=== PATIENT | female | born 1955 | race Caucasian/White ===

== ENCOUNTER 2018-03-08 09:56 | Outpatient (CLI) | payer OTHER ==
--- NOTE | 2018-03-12 13:13 | MMO ---
BILATERAL SCREENING MAMMOGRAM: History: 62-year-old female for screening mammography. Comparison: 03-21-17, 03-02-16, 02-22-15 FINDINGS: Bilateral MLO and CC views of the breast show scattered fibroglandular breast tissue. Benign appearin g calcifications are seen in both breasts. There is no evidence of suspicious mass, suspicious cluste r of microcalcifications or area of architectural distortion. This study is interpreted with the assistance of computer aided detection. IMPRESSION: BIRADS category 2 - benign findings. Annual screening mammography is recommended. POS: [facility]
== END 2018-03-08 09:57 | disposition home or self-care (01) ==
LOC: SCSMAMMO 09:56
PROVIDERS: ATTEND Obstetrics & Gynecology
DX: Z12.31 Encounter for screening mammogram for malignant neoplasm of breast (principal)
CPT/HCPCS: 77067

== ENCOUNTER 2019-08-26 13:07 | Outpatient (CLI) | payer OTHER ==
--- NOTE | 2019-08-26 14:45 | BD ---
DEXA BONE DENSITY STUDY: HISTORY: Postmenopausal. FINDINGS: Lumbar Spine: BMD (g/cm2) L1 0.869 T-Score: -1.1 L2 0.946 T-Score: -0.7 L3 0.930 T-Score: -1.4 L4 0.973 T-Score: -0.8 L1-L4 0.932 T-Score: -1.0 Femoral Neck: 0.654 T-Score: -1.8 Total Femur: 0.810 T-Score: -1.1 Impression: 1. Osteopenia of the left hip and normal bone mineral density of the lumbar spine. 2. Ten-year fracture risk of a major osteoporotic fracture is 9.8% and of a hip fracture 1.5%. Thes e fracture probabilities are calculated for an untreated patient. POS: [facility]
--- NOTE | 2019-08-26 15:02 | MMO ---
Bilateral MAMMO Bilat Screen [facility]. CLINICAL HISTORY: Patient is 63 years old and is seen for screening. The patient has the following family history of breast cancer: maternal grandmother. The patient has no personal history of cancer. VIEWS: The views performed were: bilateral craniocaudal with tomosynthesis; bilateral mediolateral oblique with tomosynthesis; and bilateral exaggerated craniocaudal. FILMS COMPARED: The present examination has been compared to prior imaging studies performed at [facility] on 02/19/2014, 02/22/2015, 03/02/2016 and 03/21/2017. This study has been interpreted with the assistance of computer-aided detection. MAMMOGRAM FINDINGS: The breasts are heterogeneously dense, which could obscure a lesion on mammography. There are no suspicious masses, calcifications or areas of architectural distortion. There are benign appearing calcifications in both breasts. There are no suspicious masses, suspicious calcifications, or new areas of architectural distortion. IMPRESSION: THERE IS NO MAMMOGRAPHIC EVIDENCE OF MALIGNANCY. A ROUTINE FOLLOW-UP MAMMOGRAM IN 1 YEAR IS RECOMMENDED. THE RESULTS OF THIS EXAM WERE SENT TO THE PATIENT. ACR BI-RADS Category 2 - Benign finding MAMMOGRAPHY NOTE: 1. A negative mammogram report should not delay a biopsy if a dominant of clinically suspicious mass is present. 2. Approximately 10% to 15% of breast cancers are not detected by mammography. 3. Adenosis and dense breasts may obscure an underlying neoplasm. Reported by: GRACIA HERRING MD Electonically Signed: [id number]
== END 2019-08-26 13:08 | disposition home or self-care (01) ==
LOC: BICMAMMO 13:07
PROVIDERS: ATTEND Obstetrics & Gynecology
DX: Z12.31 Encounter for screening mammogram for malignant neoplasm of breast (principal); Z13.820 Encounter for screening for osteoporosis; M81.0 Age-related osteoporosis without current pathological fracture; M85.89 Other specified disorders of bone density and structure, multiple sites; Z79.890 Hormone replacement therapy; Z80.3 Family history of malignant neoplasm of breast
CPT/HCPCS: 77063; 77067; 77080

== ENCOUNTER 2019-10-21 18:26 | Inpatient (IN) | payer SELFPAY ==
--- NOTE | 2019-10-21 18:49 | RAD ---
Chest one view HISTORY: Chest injury. Pneumothorax. COMPARISON: Earlier exam on the same date. FINDINGS: Cardiac silhouette remains midline. Apical pleura of the right lung remains at the inferior margin of the posterior right third rib. Small caliber right thoracostomy tube remains in good radiographic position. Right clavicle and rib fractures again demonstrated. Left lung remains well-inflated. IMPRESSION : Small right pneumothorax and other findings are stable.
[2019-10-21 18:50] LABS: #Lymphocytes 0.7 thou/uL (1.20-3.40); #Monocytes 0.6 thou/uL (0.11-0.59); #Neutrophils 10.4 thou/uL (1.40-6.50); %Basophils 0.2 % (0.0-1.0); %Eosinophils 0.1 % (0.0-10.0); %Lymphocytes 5.9 % (21.0-51.0); %Monocytes 5.3 % (0.0-10.0); %Neutrophils 88.5 % (42.0-75.0); Hemoglobin 11.7 g/dL (12.0-16.0); Mean Corpuscular HGB CONC 34.2 g/dL (32.0-36.0); Mean Corpuscular Hemoglobin 34.5 pg (27.0-31.0); Mean Platelet Volume 7.8 fL (7.4-10.4); Platelet Count 260 thou/uL (130-400); RBC Distribution Width 11.5 % (11.5-14.5); Red Blood Cell (RBC) Count 3.38 mill/uL (4.20-5.40); White Blood Cell (WBC) Count 11.8 thou/uL (4.8-10.8)
[2019-10-21] MEDS ORDERED: Ketorolac Tromethamine 30 MG/ML VIAL ONE (19:18)
[2019-10-21] MEDS ORDERED: Lidocaine 1% w/Epinephrine 1:100K 20 ML VIAL ONE (19:18)
[2019-10-21] MEDS ORDERED: Dextrose 50% Abboject 50 ML SYRINGE SLOW IVP PRN (19:25)
[2019-10-21] MEDS ORDERED: hydrALAZINE 20 MG/ML VIAL SLOW IVP PRN (19:25)
[2019-10-21] MEDS ORDERED: Morphine 2 MG/ML SYRINGE SLOW IVP PRN (19:25)
[2019-10-21] MEDS ORDERED: Dextrose 5% in Water 1,000 ML IV PRN (19:25)
[2019-10-21] MEDS ORDERED: Rib Fracture Protocol PO SCH ×2 (19:30→20:15)
[2019-10-21] MEDS ORDERED: Morphine 4 MG/ML VIAL ONE (19:50)
--- NOTE | 2019-10-21 20:29 | RAD ---
Chest one view HISTORY: Chest tube placement. COMPARISON: Earlier exam on the same date. FINDINGS: Large caliber right thoracostomy tube has now been placed, entering at the lateral aspect o f the sixth intercostal space. Tip directed to the apex. Right pneumothorax no longer visible. Soft tissue gas now evident at the right upper chest wall. Righ t rib fractures now better visualized. radiation monitor leads overlie the chest. IMPRESSION : Large caliber right thoracostomy tube in good position with evacuation of the right pneumothorax.
[2019-10-21 23:15] VITALS: BMI 19.8
[2019-10-21] MEDS: Famotidine 20 MG TAB PO SCH (23:35)
[2019-10-21] MEDS: Ibuprofen 800 MG TAB PO SCH (23:41)
[2019-10-21] MEDS: Acetaminophen 500 MG TAB PO SCH (23:41)
[2019-10-21] MEDS: traMADol HCl 50 MG TAB PO SCH (23:41)
[2019-10-21] MEDS ORDERED: Acetaminophen 500 MG TAB PO SCH (23:59)
[2019-10-21] MEDS ORDERED: Acetaminophen 650 MG Suppository PR SCH (23:59)
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
[2019-10-22] MEDS: Ibuprofen 800 MG TAB PO SCH ×4 (05:48→23:48)
[2019-10-22] MEDS: Acetaminophen 500 MG TAB PO SCH ×4 (05:49→23:48)
[2019-10-22] MEDS: traMADol HCl 50 MG TAB PO SCH ×4 (05:49→23:48)
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
[2019-10-22] MEDS: Lisinopril 20 MG TAB PO SCH (09:58)
[2019-10-22] MEDS: Gabapentin 300 MG CAP PO SCH ×3 (09:58→20:51)
[2019-10-22] MEDS: Folic Acid 1 MG TAB PO SCH (09:59)
[2019-10-22] MEDS: Citalopram 20 MG TAB PO SCH (09:59)
[2019-10-22] MEDS: Thiamine 100 MG TAB PO SCH (09:59)
[2019-10-22] MEDS: Amlodipine 10 MG TAB PO SCH (09:59)
[2019-10-22] MEDS: Oxazepam 10 MG CAP PO SCH ×2 (09:59→20:52)
[2019-10-22] MEDS: Famotidine 20 MG TAB PO SCH ×2 (09:59→20:52)
[2019-10-22] MEDS: Polyethylene Glycol 3350 17 GM Packet PO SCH (09:59)
[2019-10-22] MEDS: Senokot S 8.6-50 MG TAB PO SCH ×2 (09:59→20:52)
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
[2019-10-23] MEDS: traMADol HCl 50 MG TAB PO SCH ×2 (05:59→12:25)
[2019-10-23] MEDS: Ibuprofen 800 MG TAB PO SCH (05:59)
[2019-10-23] MEDS: Acetaminophen 500 MG TAB PO SCH ×4 (05:59→23:01)
--- NOTE | 2019-10-23 08:19 | RAD ---
PORTABLE CHEST 1 VIEW: DATE: 10/23/2019. TIME: 5:12 AM. HISTORY: Followup pneumothorax and chest tube. COMPARISON: Previous day. FINDINGS/IMPRESSION: No significant interval change is identified. POS: [facility]
[2019-10-23] MEDS: Lisinopril 20 MG TAB PO SCH (08:54)
[2019-10-23] MEDS: Senokot S 8.6-50 MG TAB PO SCH ×2 (08:54→20:35)
[2019-10-23] MEDS: Amlodipine 10 MG TAB PO SCH (08:55)
[2019-10-23] MEDS: Thiamine 100 MG TAB PO SCH (08:55)
[2019-10-23] MEDS: Citalopram 20 MG TAB PO SCH (08:55)
[2019-10-23] MEDS: Polyethylene Glycol 3350 17 GM Packet PO SCH (08:55)
[2019-10-23] MEDS: Gabapentin 300 MG CAP PO SCH ×3 (08:55→20:35)
[2019-10-23] MEDS: Oxazepam 10 MG CAP PO SCH (08:55)
[2019-10-23] MEDS: Famotidine 20 MG TAB PO SCH ×2 (08:55→20:35)
[2019-10-23] MEDS: Folic Acid 1 MG TAB PO SCH (08:55)
[2019-10-23] MEDS ORDERED: Ibuprofen 800 MG TAB PO SCH (10:00)
[2019-10-23] MEDS: Ibuprofen 200 MG TAB PO SCH ×2 (10:41→18:03)
--- NOTE | 2019-10-23 15:32 | RAD ---
PORTABLE CHEST: 10/23/19 PROVIDED CLINICAL HISTORY: Pneumothorax. FINDINGS: Comparison made with the study dated 10/23/19, 5:12 a.m. Interval removal of right sided chest tube. There is a small right apical pneumothorax. Linear densit y overlying the right upper lung zone centrally presumably reflects chest tube tract. Multiple rib an d clavicular fractures are again seen. There is persistent subcutaneous emphysema along the right sarah st wall superiorly. The left lung remains clear. IMPRESSION: Right sided pneumothorax. POS: [facility]
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
[2019-10-23] MEDS ORDERED: traMADol HCl 50 MG TAB PO PRN (17:25)
[2019-10-23] MEDS: Ondansetron PF 4 MG/2 ML Vial IVP PRN (18:28)
[2019-10-23] MEDS: Enoxaparin Sodium 40 MG/0.4 ML SYRINGE SC SCH (20:35)
[2019-10-23] MEDS: Cyclobenzaprine 10 MG TAB PO PRN (21:47)
[2019-10-24] MEDS: Ondansetron PF 4 MG/2 ML Vial IVP PRN (01:11)
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
[2019-10-24] MEDS: Ibuprofen 200 MG TAB PO SCH ×3 (03:20→17:20)
[2019-10-24] MEDS: Acetaminophen 500 MG TAB PO SCH ×3 (05:34→17:20)
[2019-10-24 08:25] LABS: #Lymphocytes 0.6 thou/uL (1.20-3.40); #Monocytes 0.6 thou/uL (0.11-0.59); #Neutrophils 7.6 thou/uL (1.40-6.50); %Basophils 0.5 % (0.0-1.0); %Eosinophils 0.4 % (0.0-10.0); %Lymphocytes 7.2 % (21.0-51.0); %Monocytes 6.3 % (0.0-10.0); %Neutrophils 85.6 % (42.0-75.0); Hemoglobin 10.9 g/dL (12.0-16.0); Mean Corpuscular HGB CONC 35.4 g/dL (32.0-36.0); Mean Corpuscular Hemoglobin 34.3 pg (27.0-31.0); Mean Corpuscular Volume 96.8 fL (78.0-98.0); Mean Platelet Volume 7.7 fL (7.4-10.4); Platelet Count 207 thou/uL (130-400); RBC Distribution Width 10.9 % (11.5-14.5); Red Blood Cell (RBC) Count 3.18 mill/uL (4.20-5.40); White Blood Cell (WBC) Count 8.8 thou/uL (4.8-10.8)
[2019-10-24] MEDS: Polyethylene Glycol 3350 17 GM Packet PO SCH (08:25)
[2019-10-24] MEDS: Amlodipine 10 MG TAB PO SCH (08:25)
[2019-10-24] MEDS: Citalopram 20 MG TAB PO SCH (08:26)
[2019-10-24] MEDS: Thiamine 100 MG TAB PO SCH (08:26)
[2019-10-24] MEDS: Famotidine 20 MG TAB PO SCH ×2 (08:26→20:20)
[2019-10-24] MEDS: Lisinopril 20 MG TAB PO SCH (08:26)
[2019-10-24] MEDS: Folic Acid 1 MG TAB PO SCH (08:26)
[2019-10-24] MEDS: Gabapentin 300 MG CAP PO SCH ×2 (08:26→20:20)
[2019-10-24] MEDS: Senokot S 8.6-50 MG TAB PO SCH ×2 (08:26→20:20)
[2019-10-24 08:50] LABS: Anion Gap 14 mmol/L (10-20); BUN (Urea Nitrogen) 4 mg/dL (9.8-20.1); Calc. Creatinine Clearance 84 mL/min (70-130); Calcium 8.5 mg/dL (7.8-10.44); Carbon Dioxide 25 mmol/L (23-31); Estimated GFR-MDRD Greater than 90; Glucose 98 mg/dL (80-115); Magnesium 1.2 mg/dL (1.6-2.6); Phosphorus 2.6 mg/dL (2.3-4.7); Potassium 3.2 mmol/L (3.5-5.1)
[2019-10-24 09:02] LABS: Chloride 73 mmol/L (98-107); Sodium 109 mmol/L (136-145)
--- NOTE | 2019-10-24 09:17 | RAD ---
RADIOGRAPH CHEST 1 VIEW: Date: 10/24/2019 Time: 0741 HOURS HISTORY: 63-year-old female follow-up right traumatic pneumothorax. COMPARISON: 10/23/2019 at 1457 hours. FINDINGS: The right apical pneumothorax is no longer identified. Again noted are the multiple significantly dis placed fractures of the anterior portions of the right upper ribs (displaced medially). No interval c hange in the orientation of the comminuted fracture of the right clavicular mid shaft with greater th an 200% shaft width inferior displacement of the major distal fragment. The subcutaneous emphysema in the right chest wall has extended into the right supraclavicular neck now. No midline shift of the n ormal appearing mediastinum and heart. Craniocaudally broad region of heterogeneously moderately incr eased attenuation laterally in the right upper lung zone may represent pulmonary contusion and/or ple ural hematoma. No pulmonary edema. The rest of the lung onofre are clear. No effacement of lateral co stophrenic angles. There is a new finding of a vertically oriented crescent of gas directly inferior to the left hemidiaphragm. This could be gas outlining stool in the splenic flexure of the colon, but there is a smaller possibility that this could represent extraluminal gas. IMPRESSION: 1. The right apical pneumothorax is no longer visualized. 2. Interval superior further extension of the right-sided subcutaneous emphysema into the supraclavi cular region. 3. No other interval change in the thorax. 4. Acute, traumatic, comminuted, significantly displaced right clavicular fracture. 5. Acute, traumatic, significantly displaced right rib fractures. 6. Crescentic focus of gas in the left upper quadrant. Recommend right lateral decubitus radiograph of abdomen. NATAN [] POS: [facility]
[2019-10-24] MEDS ORDERED: Magnesium Sulfate 4 GM in Sodium Chloride 0.9% 250 ML 250 ML IVPB SCH (10:00)
[2019-10-24] MEDS ORDERED: Potassium Phosphate 30 MMOL, Magnesium Sulfate 4 GM in Sodium Chloride 0.9% 250 ML 250 ML IVPB SCH (10:00)
[2019-10-24] MEDS: Sodium Chloride 1 GM TAB PO SCH ×3 (10:06→20:27)
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
[2019-10-24 14:46] LABS: Anion Gap 16 mmol/L (10-20); BUN (Urea Nitrogen) 4 mg/dL (9.8-20.1); Calc. Creatinine Clearance 82 mL/min (70-130); Calcium 8.4 mg/dL (7.8-10.44); Carbon Dioxide 24 mmol/L (23-31); Chloride 73 mmol/L (98-107); Estimated GFR-MDRD Greater than 90; Glucose 117 mg/dL (80-115); Magnesium 2.2 mg/dL (1.6-2.6); Phosphorus 3.9 mg/dL (2.3-4.7); Potassium 3.2 mmol/L (3.5-5.1); Sodium 110 mmol/L (136-145)
[2019-10-24] MEDS ORDERED: Sodium Chloride 0.9% 500 ML IV SCH (17:00)
[2019-10-24] MEDS: Enoxaparin Sodium 40 MG/0.4 ML SYRINGE SC SCH (20:19)
[2019-10-24] MEDS: traMADol HCl 50 MG TAB PO PRN (20:20)
[2019-10-24] MEDS: Cyclobenzaprine 10 MG TAB PO PRN (20:20)
[2019-10-24 21:22] LABS: Anion Gap 13 mmol/L (10-20); BUN (Urea Nitrogen) 5 mg/dL (9.8-20.1); Calc. Creatinine Clearance 84 mL/min (70-130); Calcium 8.1 mg/dL (7.8-10.44); Carbon Dioxide 24 mmol/L (23-31); Chloride 78 mmol/L (98-107); Estimated GFR-MDRD Greater than 90; Glucose 125 mg/dL (80-115)
[2019-10-24 21:32] LABS: Potassium 2.9 mmol/L (3.5-5.1); Sodium 112 mmol/L (136-145)
[2019-10-24] MEDS ORDERED: Potassium Phosphate 30 MMOL in Sodium Chloride 0.9% 500 ML IVPB SCH (22:00)
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
[2019-10-25] MEDS: Ibuprofen 200 MG TAB PO SCH ×2 (01:02→09:17)
[2019-10-25] MEDS: Acetaminophen 500 MG TAB PO SCH ×3 (01:02→12:37)
[2019-10-25] MEDS: traMADol HCl 50 MG TAB PO PRN (01:59)
[2019-10-25 08:13] LABS: Anion Gap 13 mmol/L (10-20); BUN (Urea Nitrogen) 4 mg/dL (9.8-20.1); Calc. Creatinine Clearance 85 mL/min (70-130); Calcium 8.9 mg/dL (7.8-10.44); Carbon Dioxide 27 mmol/L (23-31); Chloride 86 mmol/L (98-107); Estimated GFR-MDRD Greater than 90; Glucose 94 mg/dL (80-115); Magnesium 2.1 mg/dL (1.6-2.6); Phosphorus 3.9 mg/dL (2.3-4.7); Sodium 123 mmol/L (136-145)
[2019-10-25 08:30] LABS: Potassium 2.9 mmol/L (3.5-5.1)
[2019-10-25] MEDS ORDERED: Potassium Chloride 20 MEQ TAB PO SCH (08:45)
[2019-10-25] MEDS ORDERED: AcetaZOLAMIDE 250 MG TAB PO SCH (09:00)
[2019-10-25] MEDS: Famotidine 20 MG TAB PO SCH (09:18)
[2019-10-25] MEDS: Folic Acid 1 MG TAB PO SCH (09:18)
[2019-10-25] MEDS: Sodium Chloride 1 GM TAB PO SCH (09:18)
[2019-10-25] MEDS: Polyethylene Glycol 3350 17 GM Packet PO SCH (09:18)
[2019-10-25] MEDS: Amlodipine 10 MG TAB PO SCH (09:19)
[2019-10-25] MEDS: Thiamine 100 MG TAB PO SCH (09:19)
[2019-10-25] MEDS: Citalopram 20 MG TAB PO SCH (09:19)
[2019-10-25] MEDS: Senokot S 8.6-50 MG TAB PO SCH (09:19)
[2019-10-25] MEDS: Lisinopril 20 MG TAB PO SCH (09:19)
[2019-10-25] MEDS: Gabapentin 300 MG CAP PO SCH (09:20)
[2019-10-25 11:17] VITALS: BP 136/66; TEMP 98.7
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
== END 2019-10-25 13:20 | disposition home or self-care (01) | DRG 200 ==
LOC: ERS 18:26 → SURG A 19:30
PROVIDERS: ADMIT Surgery; ATTEND Surgery
PROC: 0W9900Z Drainage of Right Pleural Cavity with Drainage Device, Open Approach (ICD-10-PCS; principal; 2019-10-21)
DX: S27.0XXA Traumatic pneumothorax, initial encounter (principal); S22.41XA Multiple fractures of ribs, right side, initial encounter for closed fracture; E87.1 Hypo-osmolality and hyponatremia; I10 Essential (primary) hypertension; F32.9 Major depressive disorder, single episode, unspecified; S42.001A Fracture of unspecified part of right clavicle, initial encounter for closed fracture; E87.6 Hypokalemia; E87.8 Other disorders of electrolyte and fluid balance, not elsewhere classified; E78.00 Pure hypercholesterolemia, unspecified; E83.42 Hypomagnesemia; Z98.51 Tubal ligation status; Z88.2 Allergy status to sulfonamides; V89.2XXA Person injured in unspecified motor-vehicle accident, traffic, initial encounter; Y92.39 Other specified sports and athletic area as the place of occurrence of the external cause
CPT/HCPCS: 32551; 36415; 36416; 71045; 80048; 83735; 84100; 85025; 94640; 96374; 96375; G0390; J1650; J1885; J2270; J2405; J3475; J7030; J7050; J7620

== ENCOUNTER 2019-11-11 12:46 | Outpatient (CLI) | payer OTHER ==
[2019-11-12 12:05] LABS: SARS-CoV-2 MS2 Positive; SARS-CoV-2 N Gene Negative; SARS-CoV-2 S Gene Negative; SARS-CoV-2 orf1ab Negative
--- NOTE | 2019-11-16 15:57 | EKG ---
Test Reason : Blood Pressure : / mmHG Vent. Rate : 093 BPM Atrial Rate : 093 BPM P-R Int : 146 ms QRS Dur : 080 ms QT Int : 350 ms P-R-T Axes : 074 081 057 degrees QTc Int : 435 ms Normal sinus rhythm Normal ECG No previous ECGs available Confirmed by PK QURESHI (2) on 11/16/2019 3:57:35 PM Referred By: TIMOTHY Confirmed By:PK QURESHI
== END 2019-11-11 12:47 | disposition home or self-care (01) ==
LOC: LABBT 12:46
PROVIDERS: ATTEND Orthopaedic Surgery
DX: Z01.818 Encounter for other preprocedural examination (principal); Z11.59 Encounter for screening for other viral diseases; S42.001A Fracture of unspecified part of right clavicle, initial encounter for closed fracture
CPT/HCPCS: 87635; 93005; 93010; U0003

== ENCOUNTER 2019-11-13 10:18 | Day surgery (SDC) | payer OTHER ==
[2019-11-11 12:59] VITALS: BMI 18.6
[2019-11-13] MEDS ORDERED: EPHEDRINE 25 MG/5 ML SYRINGE ONE (10:38)
[2019-11-13] MEDS ORDERED: PHENYLEPHRINE-NS 100 MCG/ML 10 ML SYRINGE ONE (10:38)
[2019-11-13] MEDS ORDERED: Rocuronium Bromide 10 MG/ML (10ML VIAL) ONE (10:38)
[2019-11-13] MEDS ORDERED: Lidocaine 1% PF 5 ML VIAL ONE (10:38)
[2019-11-13] MEDS ORDERED: Ketorolac Tromethamine 30 MG/ML VIAL ONE (10:38)
[2019-11-13] MEDS ORDERED: PROPOFOL 200 MG/20 ML VIAL ONE (10:38)
[2019-11-13] MEDS ORDERED: Bupivacaine HCl 0.5%/Epinephrine 1:200,000/PF 30 ml Vial ONE (10:38)
[2019-11-13] MEDS ORDERED: Glycopyrrolate 0.2 MG/ML 5 ML SYRINGE ONE (10:38)
[2019-11-13] MEDS ORDERED: Metoclopramide HCl 10 MG/2 ML VIAL ONE (10:38)
[2019-11-13] MEDS ORDERED: Dexamethasone 20 MG/5 ML VIAL ONE (10:38)
[2019-11-13] MEDS ORDERED: Ondansetron PF 4 MG/2 ML Vial ONE (10:38)
[2019-11-13] MEDS ORDERED: Midazolam HCl 2 mg/2 ml Vial ONE (11:56)
[2019-11-13] MEDS ORDERED: Famotidine/PF 20 mg/2ml Vial ONE (12:30)
[2019-11-13] MEDS ORDERED: Fentanyl 100 MCG/2 ML VIAL ONE (12:30)
[2019-11-13] MEDS ORDERED: Bupivacaine PF 0.5% 30 ML VIAL ONE (14:53)
--- NOTE | 2019-11-13 15:54 | RAD ---
RIGHT CLAVICLE: 11/13/19 Two views. INDICATIONS: Open reduction internal fixation. Fluoroscopic views taken in the OR. FINDINGS/IMPRESSION: These films demonstrate plate and screws transfixing clavicle. POS: AGW
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
== END 2019-11-13 17:10 | disposition home or self-care (01) ==
LOC: SDC 10:18
PROVIDERS: ATTEND Orthopaedic Surgery
PROC: 0PS904Z Reposition Right Clavicle with Internal Fixation Device, Open Approach (ICD-10-PCS; principal; 2019-11-13)
PROC: 3E0T3BZ Introduction of Anesthetic Agent into Peripheral Nerves and Plexi, Percutaneous Approach (ICD-10-PCS; principal; 2019-11-13)
DX: S42.021A Displaced fracture of shaft of right clavicle, initial encounter for closed fracture (principal); G89.18 Other acute postprocedural pain; I10 Essential (primary) hypertension; F41.9 Anxiety disorder, unspecified; F32.9 Major depressive disorder, single episode, unspecified; E78.00 Pure hypercholesterolemia, unspecified; Z03.818 Encounter for observation for suspected exposure to other biological agents ruled out; Z79.899 Other long term (current) drug therapy; Z88.2 Allergy status to sulfonamides; V86.99XA Unspecified occupant of other special all-terrain or other off-road motor vehicle injured in nontraffic accident, initial encounter
CPT/HCPCS: 76000; C1713; C1758; J0670; J0690; J1100; J1885; J2001; J2250; J2405; J2704; J2765; J3010; S0020; S0028

== ENCOUNTER 2022-05-03 12:35 | Outpatient (CLI) | payer MEDICARE | END 2022-05-03 12:36 | disposition home or self-care (01) | LOC: SCSMRI 12:35 | PROVIDERS: ATTEND Neurological Surgery | DX: R26.81 Unsteadiness on feet (principal) | CPT/HCPCS: 70551 ==